=== PATIENT | male | born 1995 | race Two or more races ===

== ENCOUNTER 2022-12-24 05:50 | Emergency (ER) | payer OTHER ==
[~2022-12-24] VITALS: Ht 175.3 cm; Wt 102.7 kg
[2022-12-24] MEDS ORDERED: ACETAMINOPHEN 500 MG TAB PO ONE (07:00)
[2022-12-24 07:17] VITALS: BP 146/101
[2022-12-24] MEDS ORDERED: IBUP800T27 PO (07:32)
== END 2022-12-24 07:38 | disposition home or self-care (01) ==
LOC: ER 05:50
DX: S16.1XXA Strain of muscle, fascia and tendon at neck level, initial encounter (principal); V43.52XA Car driver injured in collision with other type car in traffic accident, initial encounter; Y93.89 Activity, other specified; Y92.410 Unspecified street and highway as the place of occurrence of the external cause; Y99.8 Other external cause status
CPT/HCPCS: 72040